=== PATIENT | female | born 1970 | race African-American/Black ===

== ENCOUNTER 2018-04-20 21:49 | Observation (INO) ==
--- NOTE | 2018-04-20 23:09 | XR ---
EXAM DATE: 04/20/2018 11:07 PM EST AGE/SEX: 47 years / Female INDICATIONS: Short of breath. CLINICAL DATA: This is the patient's initial encounter. Patient reports that signs and symptoms have been present for 1 day and indicates a pain score of 5/10. MEDICAL/SURGICAL HISTORY: None. None. COMPARISON: No prior exams available for comparison. FINDINGS: A single AP view of the chest demonstrates the lungs to be symmetrically aerated without evidence of mass, infiltrate or effusion. The cardiomediastinal contours are unremarkable. Osseous structures a re intact. CONCLUSION: No acute cardiopulmonary process Electronically signed by: Mahesh Nuno MD Board Certified Radiologist 04/20/2018 11:08 PM EST
[2018-04-20 23:15] LABS: Baso % (Auto) 0.6 % (0.0-2.0); Eos # (Auto) 0.1 th/mm3 (0.0-0.4); Eos % (Auto) 0.9 % (0.0-4.0); Hematocrit 38.4 % (35.0-46.0); Hemoglobin 12.8 gm/dL (11.6-15.3); Lymph # (Auto) 2.4 th/mm3 (1.0-4.8); Lymph % (Auto) 36.6 % (9.0-44.0); Mean Corpuscular HGB Conc 33.2 % (32.0-36.0); Mean Corpuscular Hemoglobin 27.6 pg (27.0-34.0); Mean Corpuscular Volume 83.1 fL (80.0-100.0); Mean Platelet Volume 7.4 fL (7.0-11.0); Mono # (Auto) 0.5 th/mm3 (0.0-0.9); Mono % (Auto) 7.8 % (0.0-8.0); Neut # (Auto) 3.6 th/mm3 (1.8-7.7); Neut % (Auto) 54.1 % (16.0-70.0); Platelet Count 367 th/mm3 (150-450); Red Blood Count 4.62 mil/mm3 (4.00-5.30); Red Cell Distribution Width 14.1 % (11.6-17.2); White Blood Count 6.6 th/mm3 (4.0-11.0)
--- NOTE | 2018-04-20 23:18 | CT ---
EXAM DATE: 04/20/2018 11:11 PM EST AGE/SEX: 47 years / Female INDICATIONS: Headaches. CLINICAL DATA: This is the patient's initial encounter. Patient reports that signs and symptoms have been present for 1 day and indicates a pain score of 10/10. MEDICAL/SURGICAL HISTORY: Hypertension. None. RADIATION DOSE: 36.53 CTDI (mGy) COMPARISON: No prior exams available for comparison. TECHNIQUE: CT of the head without contrast. Using automated exposure control and adjustment of the mA and/or kV according to patient size, radiation dose was kept as low as reasonably achievable to ob tain optimal diagnostic quality images. DICOM format image data is available electronically for revi ew and comparison. FINDINGS: Cerebrum: The ventricles are normal for age. No evidence of midline shift, mass lesion, hemorrhage or acute infarction. No extraaxial fluid collections are seen. Posterior Fossa: The cerebellum and brainstem are intact. The 4th ventricle is midline. The cerebe llopontine angle is unremarkable. Extracranial: The visualized portion of the orbits is intact. Skull: The calvaria is intact. No evidence of skull fracture. CONCLUSION: Negative exam . . Electronically signed by: Mahesh Nuno MD Board Certified Radiologist 04/20/2018 11:16 PM EST
--- NOTE | 2018-04-20 23:25 | ED ---
HPI General Chief complaint: Headache Stated complaint: High B/P Time Seen by Provider: 04/20/18 22:22 Source: patient Limitations: no limitations History of Present Illness HPI narrative: The patient is a 47 year old female who presents to the [facility] emergency department with a history of reportedly since yesterday having intermittent tightening sensations in the upper arm and the muscles along the biceps area, and also in the forearm. The patient reports that the tightening and aching sensation seem to come and go. She reports that she is also had a tightening sensation in the left side of her chest that is coming and going. She reports that the pains do not seem to go together. She denies having any shortness of breath associated with this. She reports that she was also having a headache in her occipital area initially on the left which moved over to the right. She also reports having tingling sensations in her left hand all of her fingers that have now moved into the right fingers. She reports that the symptoms seem to be coming and going. She thought that it may be related to her blood pressure, therefore she checked this prior to arrival and noted that it was quite elevated. She reports that her blood pressure is normally well controlled with lisinopril and Norvasc, however she has recently been traveling a lot and eating a lot of fast food. She denies any increased stress. She denies any prior history of coronary artery disease. She denies having any lower extremity edema, calf pain, or erythema. She denies having any fevers or chills, cough or congestion. She denies having any weakness of her extremities. She denies having any facial droop, difficulty with word finding ability, vertigo, or vision changes. On review of systems otherwise, the patient denies having any neck pain or stiffness, abdominal pain, vomiting, diarrhea, or urinary symptoms. The patient reports that her menstrual cycles are irregular now. She cannot recall the exact date of her last menstrual cycle, she reports that she usually has them 1-2 times per year. Related Data Home Medications Medication Instructions Recorded Confirmed amlodipine [Norvasc] 10 mg PO DAILY 04/20/18 04/20/18 lisinopril 20 mg PO DAILY 04/20/18 04/20/18 Allergies Allergy/AdvReac Type Severity Reaction Status Date / Time No Known Allergies Allergy Verified 04/20/18 22:09 Review of Systems ROS: all other systems reviewed are negative [facility] Medical History Medical History HTN (hypertension) (Acute) Surgical History Surgical History History of hernia repair (Acute) Social History Social History Substance History: No History of Abuse Second Hand Smoke Exposure: No Smoking Status: Never smoker How Often Do You Have a Drink Containing Alcohol: Never Recent Travel in [facility] within the Last 8 Weeks: Yes Recent Out of Country Travel within the Last 8 Weeks: No Immunization History Tetanus Immunization: Unsure Exam Const General: cooperative, no acute distress and well developed Nutritional Appearance: well nourished Orientation: alert, awake and oriented x3 HENMT Head: normocephalic and atraumatic Nose: no nasal discharge and no epistaxis Mouth: moist mucous membranes Throat: posterior oropharynx normal and uvula midline Eyes Sclera: normal sclerae Pupils: PERRL Neck Neck: trachea midline and no JVD Resp Effort & Inspection: no use of accessory muscles Auscultation: clear to auscultation bilaterally Cardio Rate: regular rate Rhythm: regular rhythm Heart Sounds: no murmurs GI Inspection: non-distended Palpation: soft, no hepatosplenomegaly and nontender Skin General: dry skin (warm) Neuro General: alert, awake, oriented x3 and other (Grossly nonfocal.) Speech: speech normal Motor: no movement abnormalities noted Extrem General: normal to inspection, no clubbing, no cyanosis and no edema Psych Mood: congruent mood Affect: normal affect Judgment: judgment good Course Initial Documented Vital Signs Temperature 98.7 F 04/20/18 22:09 Pulse Rate 72 04/20/18 22:09 Respiratory Rate 18 04/20/18 22:09 Blood Pressure 210/108 H 04/20/18 22:09 Pulse Oximetry 95 04/20/18 22:09 Last Documented Vital Signs Temperature 97.9 F 04/21/18 04:00 Pulse Rate 68 04/21/18 04:00 Respiratory Rate 16 04/21/18 05:10 Blood Pressure 147/72 H 04/21/18 04:00 Pulse Oximetry 98 04/21/18 04:00 Medical Decision Making MDM Narrative Medical decision making narrative: During the course of the patient's emergency department visit, the patient's history, examination, and differential diagnosis were reviewed with the patient. The patient was placed on a threat monitoring analyst with oximetry and frequent blood pressure monitoring. The patient had IV access obtained and blood work sent for analysis. A diagnostic evaluation was started regarding the patient's chest tightness, tingling sensations in her hands, and aching sensation in the left arm, associated with elevated blood pressure. The patient's blood pressure on arrival was 210/108. The patient was initially provided nitroglycerin 1 inch to the chest wall. The patient was given hydralazine IV. The patient's diagnostic studies are remarkable for a CBC that is within normal limits, PT PTT within normal limits, GFR of 87, AST 13, alkaline phosphatase 127 with an initial set of cardiac enzymes that are within normal limits, lipase within normal limits. CHEST X-RAY: Shows no evidence of acute cardiopulmonary disease, a CT scan of the brain shows no acute abnormality. The patient's blood pressure began to improve after hydralazine and nitroglycerin. The patient was given aspirin 324 mg p.o. x1. The patient will be admitted to the chest pain center for rule out serial cardiac enzyme protocol followed by stress testing. The patient's results were discussed with the patient, including the plan of care. I explained that further testing and/ or monitoring is indicated based on the patient's history, examination, and/ or laboratory findings. Therefore, I recommended admission for additional evaluation. The patient expressed understanding and was agreeable with this plan. The patient was admitted to the hospital in stable condition and sent to a bed under the care of the [facility]. Medical Screen Exam Complete: Yes Emergency Medical Condition: Yes Differential Diagnosis Differential Diagnosis: Acute coronary syndrome, versus intracranial hemorrhage , versus hypertensive urgency, versus hypertensive emergency, versus ischemic stroke Medical Records Medical records reviewed: Yes I reviewed the patient's medical records. Lab Data Lab results reviewed: Yes I reviewed the patient's lab results. Result diagrams: 04/20/18 23:00 04/20/18 23:00 POC Results POC Urine Results Negative Lab Results 04/20/18 04/20/18 04/20/18 Range/Units 23:00 23:00 23:00 WBC 6.6 (4.0-11.0) th/mm3 RBC 4.62 (4.00-5.30) mil/mm3 Hgb 12.8 (11.6-15.3) gm/dL Hct 38.4 (35.0-46.0) % MCV 83.1 (80.0-100.0) fL MCH 27.6 (27.0-34.0) pg MCHC 33.2 (32.0-36.0) % RDW 14.1 (11.6-17.2) % Plt Count 367 (150-450) th/mm3 MPV 7.4 (7.0-11.0) fL Neut % (Auto) 54.1 (16.0-70.0) % Lymph % (Auto) 36.6 (9.0-44.0) % Calvert % (Auto) 7.8 (0.0-8.0) % Eos % (Auto) 0.9 (0.0-4.0) % Baso % (Auto) 0.6 (0.0-2.0) % Neut # (Auto) 3.6 (1.8-7.7) th/mm3 Lymph # (Auto) 2.4 (1.0-4.8) th/mm3 Calvert # (Auto) 0.5 (0.0-0.9) th/mm3 Eos # (Auto) 0.1 (0.0-0.4) th/mm3 Baso # (Auto) 0.0 (0.0-0.2) th/mm3 WBC Differential . Differential Comment Auto diff final PT (9.8-11.6) sec INR Ratio APTT (23.4-31.7) sec Sodium (136-145) meq/L Potassium (3.5-5.1) meq/L Chloride (98-107) meq/L Carbon Dioxide (21.0-32.0) meq/L Anion Gap (5-15) meq/L BUN (7-18) mg/dL Creatinine (0.50-1.00) mg/dL Estimated GFR (>89) mL/min Random Glucose (74-106) mg/dL Calcium (8.5-10.1) mg/dL Magnesium (1.5-2.5) mg/dL Total Bilirubin (0.2-1.0) mg/dL AST (15-37) U/L ALT (10-53) U/L Alkaline Phosphatase (45-117) U/L Total Creatine Kinase (26-192) U/L CK-MB (CK-2) (0.5-3.6) ng/mL Troponin I (0.02-0.05) ng/mL B-Natriuretic Peptide 50 (0-100) pg/mL Total Protein (6.4-8.2) g/dL Albumin (3.4-5.0) g/dL Lipase Cancelled 04/20/18 04/20/18 04/21/18 Range/Units 23:00 23:00 02:00 WBC (4.0-11.0) th/mm3 RBC (4.00-5.30) mil/mm3 Hgb (11.6-15.3) gm/dL Hct (35.0-46.0) % MCV (80.0-100.0) fL MCH (27.0-34.0) pg MCHC (32.0-36.0) % RDW (11.6-17.2) % Plt Count (150-450) th/mm3 MPV (7.0-11.0) fL Neut % (Auto) (16.0-70.0) % Lymph % (Auto) (9.0-44.0) % Calvert % (Auto) (0.0-8.0) % Eos % (Auto) (0.0-4.0) % Baso % (Auto) (0.0-2.0) % Neut # (Auto) (1.8-7.7) th/mm3 Lymph # (Auto) (1.0-4.8) th/mm3 Calvert # (Auto) (0.0-0.9) th/mm3 Eos # (Auto) (0.0-0.4) th/mm3 Baso # (Auto) (0.0-0.2) th/mm3 WBC Differential Differential Comment PT 10.6 (9.8-11.6) sec INR 1.0 Ratio APTT 27.5 (23.4-31.7) sec Sodium 141 (136-145) meq/L Potassium 3.6 (3.5-5.1) meq/L Chloride 107 (98-107) meq/L Carbon Dioxide 26.0 (21.0-32.0) meq/L Anion Gap 8 (5-15) meq/L BUN 9 (7-18) mg/dL Creatinine 0.85 (0.50-1.00) mg/dL Estimated GFR 87 L (>89) mL/min Random Glucose 82 (74-106) mg/dL Calcium 9.0 (8.5-10.1) mg/dL Magnesium 1.9 (1.5-2.5) mg/dL Total Bilirubin 0.3 (0.2-1.0) mg/dL AST 13 L (15-37) U/L ALT 15 (10-53) U/L Alkaline Phosphatase 127 H (45-117) U/L Total Creatine Kinase 109 96 (26-192) U/L CK-MB (CK-2) Less than 1.0 (0.5-3.6) ng/mL Troponin I Less than 0.02 L Less than 0.02 L (0.02-0.05) ng/mL B-Natriuretic Peptide (0-100) pg/mL Total Protein 7.9 (6.4-8.2) g/dL Albumin 3.8 (3.4-5.0) g/dL Lipase 75 04/21/18 Range/Units 04:50 WBC (4.0-11.0) th/mm3 RBC (4.00-5.30) mil/mm3 Hgb (11.6-15.3) gm/dL Hct (35.0-46.0) % MCV (80.0-100.0) fL MCH (27.0-34.0) pg MCHC (32.0-36.0) % RDW (11.6-17.2) % Plt Count (150-450) th/mm3 MPV (7.0-11.0) fL Neut % (Auto) (16.0-70.0) % Lymph % (Auto) (9.0-44.0) % Calvert % (Auto) (0.0-8.0) % Eos % (Auto) (0.0-4.0) % Baso % (Auto) (0.0-2.0) % Neut # (Auto) (1.8-7.7) th/mm3 Lymph # (Auto) (1.0-4.8) th/mm3 Calvert # (Auto) (0.0-0.9) th/mm3 Eos # (Auto) (0.0-0.4) th/mm3 Baso # (Auto) (0.0-0.2) th/mm3 WBC Differential Differential Comment PT (9.8-11.6) sec INR Ratio APTT (23.4-31.7) sec Sodium (136-145) meq/L Potassium (3.5-5.1) meq/L Chloride (98-107) meq/L Carbon Dioxide (21.0-32.0) meq/L Anion Gap (5-15) meq/L BUN (7-18) mg/dL Creatinine (0.50-1.00) mg/dL Estimated GFR (>89) mL/min Random Glucose (74-106) mg/dL Calcium (8.5-10.1) mg/dL Magnesium (1.5-2.5) mg/dL Total Bilirubin (0.2-1.0) mg/dL AST (15-37) U/L ALT (10-53) U/L Alkaline Phosphatase (45-117) U/L Total Creatine Kinase 91 (26-192) U/L CK-MB (CK-2) (0.5-3.6) ng/mL Troponin I Less than 0.02 L (0.02-0.05) ng/mL B-Natriuretic Peptide (0-100) pg/mL Total Protein (6.4-8.2) g/dL Albumin (3.4-5.0) g/dL Lipase Imaging Data Radiologist's impression: Head CT 04/20/18 22:43 CONCLUSION: Negative exam . . Chest X-Ray 04/20/18 22:44 CONCLUSION: No acute cardiopulmonary process ECG Data Attestation: I personally reviewed and interpreted this ECG as follows: Interpretation: The patient had an EKG done on arrival. The patient's EKG reveals a sinus bradycardia with occasional supraventricular premature complexes heart rate of 52, QRS duration is 95 ms, QTC 421 ms, moderate T wave abnormalities are noted, no acute ST segment elevation is noted. Discharge Plan Discharge Disposition Patient Disposition: ED Admit(ED Internal Use Only) Discharge Order Discharge Orders: ED Use Only Admit Order (Routine); Ordered 04/21/18 Ordered By: Savita Prakash Discharge Details Diagnosis: Chest pain, rule out acute myocardial infarction, Hypertension Physicians Team ED Provider: aSvita Prakash Primary Care Provider: UNKNOWN, Attending Provider: Ben De Paz Status ED Status: Left Department Discharge Information Discharge Date/Time: 04/21/18 01:54
[2018-04-20 23:29] LABS: Activated Partial Thrombo Time 27.5 sec (23.4-31.7); Prothrombin Time 10.6 sec (9.8-11.6)
[2018-04-20 23:45] LABS: Albumin 3.8 g/dL (3.4-5.0); Anion Gap 8 meq/L (5-15); Aspartate Aminotransferase 13 U/L (15-37); Blood Urea Nitrogen 9 mg/dL (7-18); Chloride 107 meq/L (98-107); Glomerular Filtration Rate 87 mL/min (>89); Glucose,Random 82 mg/dL (74-106); Lipase 75 U/L (73-393); Magnesium 1.9 mg/dL (1.5-2.5); Potassium 3.6 meq/L (3.5-5.1); Sodium 141 meq/L (136-145)
[2018-04-20 23:46] LABS: Alanine Aminotransferase 15 U/L (10-53)
[2018-04-20] MEDS ORDERED: hydrALAZINE HCl Inj 20 MG/ML Vial IV.PUSH ONE (23:47)
[2018-04-20 23:50] LABS: Alkaline Phosphatase 127 U/L (45-117); Creatine Kinase 109 U/L (26-192); Total Protein 7.9 g/dL (6.4-8.2)
[2018-04-21] MEDS: Acetaminophen 500 MG Tablet PO PRN ×2 (01:34→13:59)
[2018-04-21 02:48] LABS: Creatine Kinase 96 U/L (26-192)
[2018-04-21 04:12] VITALS: O2SAT 98
[2018-04-21] MEDS ORDERED: Morphine Sulfate Inj 2 MG/ML Vial IV.PUSH PRN (04:43)
[2018-04-21 05:46] LABS: Creatine Kinase 91 U/L (26-192)
[2018-04-21] MEDS ORDERED: Ketorolac Inj 30 MG/ML (IVP) Vial IV.PUSH ONE (07:54)
--- NOTE | 2018-04-21 07:54 | P.HPCA ---
History of Present Illness Primary Care Physician: PCP in [place] Chief Complaint: Chest pain, elevateed blood pressure History of Present Illness: 47-year-old female with history of hypertension presents emergency room for further evaluation of chest pain. Onset yesterday evening. Location left anterior chest. Characterized as pressure. Duration intermittent generally lasting a few minutes before he gradually resolving. No precipitating or relieving factors. No associated symptoms of nausea, dyspnea, or diaphoresis. Endorses similar pain in the past, stating "I never though much of it." Also reports checking blood pressure yesterday and throughout the day blood pressure keep increasing. Reporting blood pressure in the 200/100s. Reports frequently waking up with "pressure in head," she relates this to possible elevated blood pressure. 1300-Upon further discussion, patient reported being out of blood pressure medication x1 week and ate high sodium meals, which she normally does not do. PCP in [place], recently refilled medications, but reports misplacing them during yesterdays trip to ER, requesting 30 day refill until returning home. Past cardiac testing None Social history Known hypertension. No known coronary artery disease, hyperlipidemia, or diabetes. Lifelong non-smoker. Denies alcohol or recreational drug use. Self employed, works as a [employer] [place]. Endorses active lifestyle. Family history Noncontributory for early onset cardiovascular disease. - Diagnosis (1) Chest pain of uncertain etiology (2) Hypertension (3) Cephalgia Review of Systems All other systems reviewed negative except as [facility] - History History Provided By: Patient - Medical History Medical History: Medical History (Last Reviewed 04/21/18 @ 11:05 by ELMA Dupree) HTN (hypertension) - Surgical History Surgical History: Surgical History (Last Reviewed 04/21/18 @ 11:05 by ELMA Dupree) History of hernia repair - Family History Family History: Family History (Last Updated 04/21/18 @ 11:05 by ELMA Dupree) Mother Stomach cancer Hypertension Father Hypertension - Tobacco History Second Hand Smoke Exposure: No Tobacco Use In Past 30 Days: No Smoking Status: Never smoker - Alcohol History How Often Do You Have a Drink Containing Alcohol: Never - Substance Use History Substance History: No History of Abuse - Travel History Recent Travel in the [place] Within the Last 8 Weeks: Yes Recent Travel Out of the Country Within the Last 8 Weeks: No - Immunization History Tetanus Immunization: Unsure Medications and Allergies Active Medications: Active Medications Acetaminophen (Tylenol) 500 mg PO Q4H PRN PRN Reason: HEADACHE Last Admin: 04/21/18 01:34 Dose: 500 mg Morphine Sulfate (Morphine Inj) 2 mg IV.PUSH Q4H PRN PRN Reason: CHEST PAIN/PAIN SCALE 8-10 Last Admin: 04/21/18 04:51 Dose: 2 mg Sodium Chloride (Ns Flush) 2 ml IV.FLUSH UNSCH PRN PRN Reason: FLUSH AFTER USING IV ACCESS Last Admin: 04/21/18 04:52 Dose: 2 ml Sodium Chloride (Ns Flush) 2 ml IV.FLUSH BID CATRINA Sodium Chloride (Ns Flush) 2 ml IV.FLUSH PRN PRN PRN Reason: FLUSH AFTER USING IV ACCESS Allergies Allergy/AdvReac Type Severity Reaction Status Date / Time No Known Allergies Allergy Verified 04/20/18 22:09 Exam Vital signs: Vital Signs 04/20/18 22:09 04/20/18 23:24 04/20/18 23:25 Temperature 98.7 F Pulse Rate 72 56 L Respiratory Rate 18 Blood Pressure 210/108 H Pulse Oximetry 95 99 04/20/18 23:33 04/21/18 00:45 04/21/18 01:35 Temperature Pulse Rate 49 L 72 76 Respiratory Rate 17 17 17 Blood Pressure 196/95 H 182/98 H 141/83 H Pulse Oximetry 100 100 98 04/21/18 02:08 04/21/18 03:00 04/21/18 03:01 Temperature 97.8 F Pulse Rate 73 68 Respiratory Rate 18 16 Blood Pressure 130/83 Pulse Oximetry 99 04/21/18 04:00 04/21/18 05:10 Temperature 97.9 F Pulse Rate 68 Respiratory Rate 18 16 Blood Pressure 147/72 H Pulse Oximetry 98 Intake & Output 04/20/18 04/21/18 04/21/18 18:59 06:59 18:59 Weight 81.647 kg Other: # Voids 1 Narrative: GENERAL: Alert WN, WD, NAD, pleasant, -[place] female HEAD: NC, AT EYES: Sclera clear, conjunctiva without injection, pupils equal and round ENT: Mucous membranes pink and moist CV: RRR, without murmur or rub, chest wall nontender to palpation RESP: Clear lungs throughout bilateral, no crackles, wheeze, rhonchi, symmetrical chest rise, nonlabored, able to speak in full sentences ABD: Soft, NT, ND, no masses, positive bowel tones EXT: Pulses +2x4, no dependent edema MS: Normal tone x4 extremities, nontender, no obvious deformities, full range of motion NEURO: Motor strength 5/5 PSYCH: A+O x3, pleasant affect, appropriate speech, mood, insight and judgment SKIN: Normal turgor, normal texture Results 04/20/18 23:00 04/20/18 23:00 Cardiac Enzymes 04/20/18 04/20/18 04/21/18 Range/Units 23:00 23:00 02:00 AST 13 L (15-37) U/L CK-MB (CK-2) Less than 1.0 (0.5-3.6) ng/mL Troponin I Less than 0.02 L Less than 0.02 L (0.02-0.05) ng/mL B-Natriuretic Peptide 50 (0-100) pg/mL 04/21/18 Range/Units 04:50 AST (15-37) U/L CK-MB (CK-2) (0.5-3.6) ng/mL Troponin I Less than 0.02 L (0.02-0.05) ng/mL B-Natriuretic Peptide (0-100) pg/mL Coagulation 04/20/18 04/20/18 Range/Units 23:00 23:00 PT 10.6 (9.8-11.6) sec APTT 27.5 (23.4-31.7) sec B-Natriuretic Peptide 50 (0-100) pg/mL CBC 04/20/18 Range/Units 23:00 WBC 6.6 (4.0-11.0) th/mm3 RBC 4.62 (4.00-5.30) mil/mm3 Hgb 12.8 (11.6-15.3) gm/dL Hct 38.4 (35.0-46.0) % Plt Count 367 (150-450) th/mm3 Neut # (Auto) 3.6 (1.8-7.7) th/mm3 Lymph # (Auto) 2.4 (1.0-4.8) th/mm3 [place] # (Auto) 0.5 (0.0-0.9) th/mm3 Eos # (Auto) 0.1 (0.0-0.4) th/mm3 Baso # (Auto) 0.0 (0.0-0.2) th/mm3 Comprehensive Metabolic Panel 04/20/18 Range/Units 23:00 Sodium 141 (136-145) meq/L Potassium 3.6 (3.5-5.1) meq/L Chloride 107 (98-107) meq/L Carbon Dioxide 26.0 (21.0-32.0) meq/L BUN 9 (7-18) mg/dL Creatinine 0.85 (0.50-1.00) mg/dL Calcium 9.0 (8.5-10.1) mg/dL AST 13 L (15-37) U/L ALT 15 (10-53) U/L Alkaline Phosphatase 127 H (45-117) U/L Total Protein 7.9 (6.4-8.2) g/dL Albumin 3.8 (3.4-5.0) g/dL Intake and Output 04/20/18 04/21/18 04/21/18 22:59 06:59 14:59 Other: # Voids 1 Weight 81.647 kg - Imaging and Cardiology Imaging: Impressions Head CT 04/20/18 22:43 CONCLUSION: Negative exam . . Chest X-Ray 04/20/18 22:44 CONCLUSION: No acute cardiopulmonary process EKG interpretations - Dysrhythmias Sinus rhythms and dysrhythmias: sinus bradycardia (< 50 bpm) (Nonspecific T wave changes, T wave inversions in first and second EKGs anterolaterally) Caprini VTE Risk Assessment Caprini VTE Risk Assessment: No/Low Risk (score <= 1) Caprini Risk Assessment Model: Point Value = 1 Point Value = 2 Point Value = 3 Point Value = 5 Age 41-60 Minor surgery BMI > 25 kg/m2 Swollen legs Varicose veins or History of unexplained or recurrent spontaneous Oral contraceptives or hormone replacement Sepsis (< 1 month) Serious lung disease, including pneumonia (< 1 month) Abnormal pulmonary function Acute myocardial infarction Congestive heart failure (< 1 month) History of inflammatory bowel disease Medical patient at bed rest Age 61-74 Arthroscopic surgery Major open surgery (> 45 min) Laparoscopic surgery (> 45 min) Malignancy Confined to bed (> 72 hours) Immobilizing plaster cast Central venous access Age >= 75 History of VTE Family history of VTE Factor V Leiden Prothrombin [id number] Lupus anticoagulant Anticardiolipin antibodies Elevated serum homocysteine Heparin-induced thrombocytopenia Other congenital or acquired thrombophilia Stroke (< 1 month) Elective arthroplasty Hip, pelvis, or leg fracture Acute spinal cord injury (< 1 month) Prophylaxis Regimen: Total Risk Factor Score Risk Level Prophylaxis Regimen 0-1 Low Early ambulation 2 Moderate Order ONE of the following: *Sequential Compression Device (SCD) *Heparin 5000 units SQ BID 3-4 Higher Order ONE of the following medications: *Heparin 5000 units SQ TID *Enoxaparin/Lovenox 40 mg SQ daily (WT < 150 kg, CrCl > 30 mL/min) *Enoxaparin/Lovenox 30 mg SQ daily (WT < 150 kg, CrCl > 10-29 mL/min) *Enoxaparin/Lovenox 30 mg SQ BID (WT < 150 kg, CrCl > 30 mL/min) AND/OR *Sequential Compression Device (SCD) 5 or more Highest Order ONE of the following medications: *Heparin 5000 units SQ TID (Preferred with Epidurals) *Enoxaparin/Lovenox 40 mg SQ daily (WT < 150 kg, CrCl > 30 mL/min) *Enoxaparin/Lovenox 30 mg SQ daily (WT < 150 kg, CrCl > 10-29 mL/min) *Enoxaparin/Lovenox 30 mg SQ BID (WT < 150 kg, CrCl > 30 mL/min) AND *Sequential Compression Device (SCD) Assessment and Plan - Assessment (1) Chest pain of uncertain etiology Code(s): R07.89 - Other chest pain Status: Acute Plan: Admitted to chest pain center. Monitored on telemetry overnight. ACS ruled out with 3 sets of EKGs and cardiac enzymes. Seen and evaluated by Dr. Mely Gilbert. Proceed with [facility] as patient is unable to walk on treadmill at this time. If cardiac testing unremarkable plan is to discharge home later this afternoon with follow-up with her primary care provider. (2) Hypertension Code(s): I10 - Essential (primary) hypertension Status: Chronic Plan: Continue amlodipine and lisinopril. Discussed the importance of tight blood pressure control and following a low-sodium diet. (3) Cephalgia Code(s): R51 - Headache Status: Acute Plan: Toradol 30 mg x1 dose IV. Nitro paste previously removed. H&P: Quality - VTE Deep Vein Thrombosis/Pulmonary Embolism Present on Admission: No (2) Hypertension Qualifiers: Hypertension type: unspecified Qualified Code(s): I10 - Essential (primary) hypertension (3) Cephalgia Qualifiers: Headache type: unspecified Headache chronicity pattern: episodic headache Intractability: not intractable Qualified Code(s): R51 - Headache
[2018-04-21 08:16] VITALS: RESP 20
[2018-04-21] MEDS ORDERED: Regadenoson Inj 0.4 MG/5 ML Syringe IV.PUSH ONE (09:05)
--- NOTE | 2018-04-21 09:08 | ECG ---
Date Performed: 04/20/2018 Time Performed: 22:59:09 PTAGE: 47 years EKG: SINUS BRADYCARDIA WITH OCCASIONAL SUPRAVENTRICULAR PREMATURE COMPLEXES POSSIBLE LEFT ATRIAL ENLARGEMENT MODERATE T-WAVE ABNORMALITY, CONSIDER LATERAL ISCHEMIA ABNORMAL ECG NO PREVIOUS TRACING DOCTOR: Mely Gilbert Interpretating Date/Time 04/21/2018 09:07:02
--- NOTE | 2018-04-21 09:09 | ECG ---
Date Performed: 04/21/2018 Time Performed: 02:13:09 PTAGE: 47 years EKG: Sinus rhythm WITH OCCASIONAL VENTRICULAR PREMATURE COMPLEXES MODERATE T-WAVE ABNORMALITY, CONSIDER ANTEROLATERAL ISCHEMIA ABNORMAL ECG Since PREVIOUS TRACING , new ST changes PREVIOUS TRACIN04/20/2018 22.59 DOCTOR: Mely Gilbert Interpretating Date/Time 04/21/2018 09:08:08
--- NOTE | 2018-04-21 09:10 | ECG ---
Date Performed: 04/21/2018 Time Performed: 05:03:33 PTAGE: 47 years EKG: Sinus rhythm POSSIBLE LEFT ATRIAL ENLARGEMENT MODERATE T-WAVE ABNORMALITY, CONSIDER ANTEROLATERAL ISCHEMIA ABNORM AL ECG Since PREVIOUS TRACING , no significant change noted PREVIOUS TRACIN04/21/2018 02.13 DOCTOR: Mely Gilbert Interpretating Date/Time 04/21/2018 09:08:36
[2018-04-21] MEDS ORDERED: Lisinopril 20 MG Tablet PO SCH (11:00)
[2018-04-21] MEDS ORDERED: amLODIPine 10 MG Tablet PO SCH (11:00)
[2018-04-21 12:16] VITALS: BP 150/92; PULSE 63; TEMP 97.8
--- NOTE | 2018-04-21 12:50 | NM ---
EXAM DATE: 04/21/2018 11:37 AM EST AGE/SEX: 47 years / Female INDICATIONS:Angina. . Left sided chest pain. CLINICAL DATA: This is the patient's initial encounter. Patient reports that signs and symptoms have been present for 1 day and indicates a pain score of 3/10. MEDICAL/SURGICAL HISTORY: Hypertension. Inguinal hernia repair. COMPARISON: No prior exams available for comparison. DOSE: 8.2 mCi Tc 99m Myoview at rest 26.9 mCi [id number] at stress 0.4 mg Lexiscan STRESS SYMPTOMS: Nausea and vomiting. EJECTION FRACTION: 59 % TECHNIQUE: The patient underwent pharmacologic stress with infusion of prescribed dose. Continuous ECG tracing was monitored during stress. Gated SPECT imaging was performed after stress and conventi onal SPECT imaging was performed at rest. The examination was performed on a SPECT/CT scanner, both attenuation and non-corrected datasets were reviewed. FINDINGS: Distribution: The maximum perfused segment at stress is in the inferior wall. Perfusion Study: The pattern of perfusion at stress is within normal limits. Gated Study: There are intact wall motion and wall thickening without hypokinetic or dyskinetic segm ents. The ejection fraction is calculated at 59%. RISK CATEGORY: Low (<1% Annual Mortality Rate) CONCLUSION: 1. No stress-induced ischemia demonstrated. 2. Left ventricular wall motion is within normal limits. Electronically signed by: Stephane Crenshaw MD Board Certified Radiologist 04/21/2018 12:48 PM EST
--- NOTE | 2018-04-21 16:39 | TR ---
Date Performed: 04/21/2018 Time Performed: 10:27:35 DOCTOR: Mely Gilbert DRUG LIST: CLINICAL HISTORY: REASON FOR TEST: REASON FOR ENDING: OBSERVATION: CONCLUSION: Lexiscan stress test was performed under standard four minute protocol. Radionuclid e was injected one minute prior to ending the test. No electrocardiographic abormalities were present to suggest ischemia. Nuclear imaging and interpretation are pending. COMMENTS: Lexiscan stress test was performed under standard four minute protocol. Radionuclide was injected one minute prior to ending the test. No electrocardiographic abormalities were present t o suggest ischemia. Nuclear imaging and interpretation are pending.
== END 2018-04-21 15:27 | disposition home or self-care (01) ==
LOC: NEDA 21:49 → NEPD 21:49 → NEDA 04-21 01:54 → NEPHCDU 04-21 01:56
PROVIDERS: ADMIT Internal Medicine Interventional Cardiology; ATTEND Internal Medicine Interventional Cardiology
DX: I10 Essential (primary) hypertension; R00.1 Bradycardia, unspecified; R51 Headache; I20.9 Angina pectoris, unspecified; R07.89 Other chest pain; R06.02 Shortness of breath
CPT/HCPCS: 70450; 71010; 71045; 78452; 80053; 82550; 82552; 83520; 83690; 83735; 83880; 84484; 84703; 85025; 85610; 85730; 93005; 93017; 96374; 96375; 99285; A9502; G0378; J0360; J1885; J2270; J2785; Q9969